=== PATIENT | male | born 1985 | race Caucasian/White ===

== ENCOUNTER 2025-02-03 20:42 | Emergency (ER) | payer OTHER ==
--- NOTE | 2025-02-03 22:31 | ED ---
Headache HPI - General Chief Complaint: Headache Stated Complaint: Abd pain,Migraine Time Seen by Provider: 02/03/25 22:00 Mode of arrival: ambulatory Limitations: no limitations - History of Present Illness Initial Comments: 39-year-old male with history of gout, marijuana use via smoking (last done thursday 02/01)here for a headache. Patient reported that a week ago 01/29, he started to have stomach pain (burning in character worse with eating, epigastric non radiating) with nonbloody watery diarrhea that was intermittent. He then started to have nausea and vomiting by Wednesday 01/31 that was nonbloody nonbilious that occurs multiple times daily. Yesterday 02/02 , he started to have intractable migraines that were throbbing bitemporal radiating to the occipital area with associated photosensitivity. He tried Excedrin and Tylenol, cold showers to improve his symptoms but they have not improved. Also reported associated subjective fever, chills. He denied cough, shortness of breath, recent travel, recent sick contacts, recent exposure to a public outing, extre mity swelling, palpitations, chest pain, abdominal pain. - Related Data Previous Rx's Medication Instructions Recorded Omeprazole 20 mg PO AC-BRKFST #14 cap 02/03/25 Allergies Allergy/AdvReac Type Severity Reaction Status Date / Time No Known Allergies Allergy Verified 02/03/25 21:18 Review of Systems ROS Statement: Those systems with pertinent positive or pertinent negative responses have been documented in the HPI. ROS Other: All systems not noted in ROS Statement are negative. Past Medical History Additional Past Medical History / Comment(s): Gout History of Any Multi-Drug Resistant Organisms: None Reported Past Surgical History: Appendectomy, Orthopedic Surgery Past Psychological History: No Psychological Hx Reported Smoking Status: Never smoker Past Alcohol Use History: None Reported Past Drug Use History: Marijuana General Exam - General Exam Comments Initial Comments: Physical examination: Vital signs reviewed General: non toxic, no distress, appears at stated age Head: atraumatic, normocephalic, symmetric Mouth: no lip lesion, mucus membranes dry Cardiovascular: S1S2 reg, no murmur Lungs: CTA bilateral, no rhonchi, no rales, no accessory muscle use Abdominal: soft, nondistended, tenderness to deep palpation in epigastric area,, no guarding Ext: muscle strength 5 out of 5 in all 4 extremities grossly, no gross muscle atrophy, no contractures, positive dorsalis pedis pulse bilateral, no edema Neuro: no gross focal neuro deficits Psych: Alert and oriented x3, appropriate affect and mood Limitations: no limitations Course Vital Signs 02/03/25 21:15 Temperature 97.6 F Pulse Rate 60 Respiratory 16 Rate Blood Pressure 133/92 O2 Sat by Pulse 100 Oximetry Medical Decision Making - Medical Decision Making Was pt. sent in by a medical professional or institution (, JEB, INSTRUCTIONAL COORDINATOR, urgent care, hospital, or longterm...) When possible be specific @ -No Did you speak to anyone other than the patient for history (EMS, parent, family, police, friend...)? What history was obtained from this source @ -No Did you review nursing and triage notes (agree or disagree)? Why? @ -I reviewed and agree with nursing and triage notes Were old charts reviewed (outside hosp., previous admission, EMS record, old EKG, old radiological studies, urgent care reports/EKG's, longterm records)? Report findings @ -No old charts were reviewed Differential Diagnosis? @ -Differential Abdominal Pain Men: Appendicitis, cholecystitis, diverticulosis, ischemic bowel, pancreatitis, hepatitis, UTI, gastroenteritis, AAA, incarcerated hernia, bowel obstruction, constipation, inflammatory bowel, hepatitis, peptic ulcer disease, splenic infarction, perforated viscus, testicular torsion, this is not meant to be an all-inclusive list Differential Headache: Migraine, tension, cluster, carbon monoxide, central venous thrombosis, pension karma temporal arteritis, acute closure glaucoma, intercranial hemorrhage, mastoiditis, sinusitis, head injury, this is not meant to be an all-inclusive list. EKG interpreted by me (3pts min.). @ -None done X-rays interpreted by me (1pt min.). @ -None done CT interpreted by me (1pt min.). @ -None done U/S interpreted by me (1pt. min.). @ -None done What testing was considered but not performed or refused? (CT, X-rays, U/S, labs)? Why? @ -None What meds were considered but not given or refused? Why? @ -None Did you discuss the management of the patient with other professionals (professionals i.e. , JEB, INSTRUCTIONAL COORDINATOR, lab, RT, psych nurse, social worker psychiatric, him director, teacher, commanding officer garage, piano case maker)? Give summary @ -Dr. Snow, supervising physician Was smoking cessation discussed for >3mins.? @ -No Was critical care preformed (if so, how long)? @ -No Were there social determinants of health that impacted care today? How? (Homelessness, low income, unemployed, alcoholism, drug addiction, tr ansportation, low edu. Level, literacy, decrease access to med. care, retirement, rehab)? @ -No Was there de-escalation of care discussed even if they declined (Discuss DNR or withdrawal of care, Hospice)? DNR status @ -No What co-morbidities impacted this encounter? (DM, HTN, Smoking, COPD, CAD, Cancer, CVA, ARF, Chemo, Hep., AIDS, mental health diagnosis, sleep apnea, morbid obesity)? @ -None Was patient admitted / discharged? Hospital course, mention meds given and route, prescriptions, significant lab abnormalities, going to OR and other pertinent info. @ -Discharged. Ordered IV fluid bolus, Benadryl, Reglan, ketorolac. Labs were within normal limits and unremarkable. Patient symptoms improved throughout stay and no new complications or symptoms occurred. Sent home with a trial of omeprazole for burning stomach pain possibly due to heartburn. Undiagnosed new problem with uncertain prognosis? @ -No Drug Therapy requiring intensive monitoring for toxicity (Heparin, Nitro, Insulin, Cardizem)? @ -No Were any procedures done? @ -No Diagnosis/symptom? @ -Default Acute, or Chronic, or Acute on Chronic? @ -Acute Uncomplicated (without systemic symptoms) or Complicated (systemic symptoms)? @ -Uncomplicated Side effects of treatment? @ -No Exacerbation, Progression, or Severe Exacerbation? @ -No Poses a threat to life or bodily function? How? (Chest pain, [place], [place], pneumonia, PE, COPD, DKA, ARF, appy, cholecystitis, CVA, Diverticulitis, Homicidal, Suicidal, threat to staff... and all critical care pts) @ -No - Lab Data Result diagrams: 02/03/25 22:36 02/03/25 22:36 Lab Results 02/03/25 02/03/25 Range/Units 22:36 22:36 WBC 9.29 (4.50-10.00) 10*3/uL RBC 4.40 (4.40-5.60) 10*6/uL Hgb 14.2 (13.0-17.0) g/dL Hct 39.0 L (39.6-50.0) % MCV 88.6 (80.0-97.0) fL MCH 32.3 H (27.0-32.0) pg MCHC 36.4 (32.0-37.0) g/dL Plt Count 267 (140-440) 10*3/uL MPV 9.3 L (9.5-12.2) fL Immature Gran % (Auto) 0.2 % Neutrophils % 78.3 % Lymphocytes % 13.7 % Monocytes % 6.9 % Eosinophils % 0.6 % Basophils % 0.3 % Immature Gran # 0.02 (0.00-0.04) 10*3/uL Neutrophils # 7.27 (1.80-7.70) 10*3/uL Lymphocytes # 1.27 (0.90-5.00) 10*3/uL Monocytes # 0.64 (0.20-1.00) 10*3/uL Eosinophils # 0.06 (0.04-0.35) 10*3/uL Basophils # 0.03 (0.00-0.10) 10*3/uL Sodium 139 (137-145) mmol/L Potassium 3.9 (3.5-5.1) mmol/L Chloride 98 (98-107) mmol/L Carbon Dioxide 28 (22-30) mmol/L Anion Gap 13 mmol/L BUN 13 (9-20) mg/dL Creatinine 0.76 (0.66-1.25) mg/dL Est GFR (CKD-EPI)AfAm >90 (>60 ml/min/1.73 sqM) Est GFR (CKD-EPI)NonAf >90 (>60 ml/min/1.73 sqM) Glucose 103 H (74-99) mg/dL Calcium 9.6 (8.4-10.2) mg/dL Magnesium 2.0 (1.6-2.3) mg/dL Total Bilirubin 1.2 (0.2-1.3) mg/dL AST 27 (17-59) U/L ALT 26 (4-49) U/L Alkaline Phosphatase 51 (38-126) U/L Total Protein 7.3 (6.3-8.2) g/dL Albumin 4.6 (3.5-5.0) g/dL Disposition Clinical Impression: Headache, Abdominal pain Disposition: HOME SELF-CARE Condition: Good Instructions (If sedation given, give patient instructions): Acute Headache (ED), Abdominal Pain (ED) Additional Instructions: Every disease is a spectrum and a small chance still exists that a serious condition could develop, for this reason, please monitor yourself closely for new, changing or worsening symptoms, symptoms that persist beyond another 72 hours, worsening headache, changes in vision, changes in speech, focal weakness, intractable nausea, vomiting, worsening abdominal pain, blood in vomit or stool, these symptoms or should you have any further concerns for your wellbeing please return to the ED or call 911 immediately. PLEASE call your primary care physician as soon as possible to arrange / discuss plan for followup appointment. Appointment in the next 1-3 days is strongly encouraged if possible. PLEASE let us know here before you leave if there is anything further we can do to be of any assistance. Take care and feel Better! Prescriptions: Omeprazole 20 mg PO AC-BRKFST #14 cap Is patient prescribed a controlled substance at d/c from ED?: No Referrals: Long Ho MD [Primary Care Provider] - 1-2 days Time of Disposition: 23:42
[2025-02-03] MEDS: SODIUM CHLORIDE 0.9% 1,000 ML IV STA (22:44)
[2025-02-03 22:45] LABS: Basophils # (A) 0.03 10*3/uL (0.00-0.10); Basophils % (A) 0.3 %; Eosinophils # (A) 0.06 10*3/uL (0.04-0.35); Eosinophils % (A) 0.6 %; HCT 39.0 % (39.6-50.0); HGB 14.2 g/dL (13.0-17.0); Lymphocytes # (A) 1.27 10*3/uL (0.90-5.00); Lymphocytes % (A) 13.7 %; MCH 32.3 pg (27.0-32.0); MCHC 36.4 g/dL (32.0-37.0); MCV 88.6 fL (80.0-97.0); Monocytes # (A) 0.64 10*3/uL (0.20-1.00); Monocytes % (A) 6.9 %; Neutrophils # (A) 7.27 10*3/uL (1.80-7.70); Neutrophils % (A) 78.3 %; Platelet Count 267 10*3/uL (140-440); RBC 4.40 10*6/uL (4.40-5.60); RDW 12.4 % (11.5-14.5); WBC 9.29 10*3/uL (4.50-10.00)
[2025-02-03] MEDS: ONDANSETRON 4 MG/2 ML VIAL IVP STA (22:47)
[2025-02-03] MEDS: KETOROLAC 15 MG/ML 1 ML VIAL IVP STA (22:47)
[2025-02-03] MEDS: diphenhydrAMINE 50 MG/ML 1 ML VIAL IVP STA (22:48)
[2025-02-03 22:57] LABS: ALT 26 U/L (4-49); AST 27 U/L (17-59); African American GFR (CKD) >90 (>60 ml/min/1.73 sqM); Albumin 4.6 g/dL (3.5-5.0); Alkaline Phosphatase 51 U/L (38-126); Anion Gap 13 mmol/L; Blood Urea Nitrogen 13 mg/dL (9-20); Calcium 9.6 mg/dL (8.4-10.2); Carbon Dioxide 28 mmol/L (22-30); Chloride 98 mmol/L (98-107); Glucose 103 mg/dL (74-99); Magnesium 2.0 mg/dL (1.6-2.3); Non-African American GFR(CKD) >90 (>60 ml/min/1.73 sqM); Potassium 3.9 mmol/L (3.5-5.1); Sodium 139 mmol/L (137-145); Total Protein 7.3 g/dL (6.3-8.2)
[2025-02-04 00:01] VITALS: BP 128/84; PULSE 66; RESP 15; TEMP 98
== END 2025-02-04 | disposition home or self-care (01) ==
LOC: EC 20:42 → SUPCPDRO 20:42 → EC 02-04
DX: R10.13 Epigastric pain (principal); G43.909 Migraine, unspecified, not intractable, without status migrainosus
CPT/HCPCS: 36415; 80053; 83735; 85025; 99284; 96374; 96375 ×2; 96361; J1200; J2405; J1885